=== PATIENT | male | born 1960 | race Caucasian/White ===

== ENCOUNTER → 2019-12-23 | Outpatient (CLI) | payer BC ==
[~2019-12-23] MED LIST: CEPHALEXIN500 M1 PO; FLEXERIL10 MG PO; LEVAQUIN 750MG750 M1 PO; LIPITOR 10MG10 MG PO; MOTRIN800 MG PO; PERCOCET 325 MG1 TA2 PO; PROVENTIL0.09 MG/A1 IH; SEPTRA DS 8001 TAB PO; ULTRAM 50MG TAB50 MG PO; VICODIN 5/5001 UDTAB PO; ZOCOR
== END ==
LOC: COL.RAD 08:41
DX: K76.0 Fatty (change of) liver, not elsewhere classified (principal); R16.0 Hepatomegaly, not elsewhere classified

== ENCOUNTER 2021-03-13 14:54 | Emergency (ER) | payer BC ==
[~2021-03-13] VITALS: Ht 167.6 cm; Wt 115.5 kg
[2021-03-13 16:24] VITALS: BP 147/80; PULSE 82; TEMP 98.3
== END 2021-03-13 18:00 | disposition left against medical advice (07) ==
LOC: COL.ER 14:54
DX: M54.9 Dorsalgia, unspecified (principal)

== ENCOUNTER → 2021-06-01 | Outpatient (CLI) | payer BC | LOC: COL.RAD 12:56 | DX: M47.817 Spondylosis without myelopathy or radiculopathy, lumbosacral region (principal); M51.27 Other intervertebral disc displacement, lumbosacral region; M48.07 Spinal stenosis, lumbosacral region; M51.26 Other intervertebral disc displacement, lumbar region; M47.815 Spondylosis without myelopathy or radiculopathy, thoracolumbar region; M51.36 Other intervertebral disc degeneration, lumbar region ==

== ENCOUNTER 2023-04-02 09:07 | Day surgery (SDC) | payer BC ==
[~2023-04-02] VITALS: Ht 167.6 cm; Wt 112.5 kg
[2023-04-02] VITALS (11 sets, daily range): BP systolic 106–134; BP diastolic 52–85; PULSE 58–70; TEMP 97.2–98.6
[2023-04-02] MEDS ORDERED: LIPITOR20 MG PO (09:53)
[2023-04-02] MEDS ORDERED: RT ADVAIR 528 DISKUS IH (09:54)
[2023-04-02] MEDS ORDERED: BYSTOLIC20 MG PO (09:55)
[2023-04-02] MEDS ORDERED: MAXZIDE-25MG TA1 TAB PO (09:55)
--- NOTE | 2023-04-02 10:39 | NUR ---
0928 Pt ambulatory to bay [facility] with limping gait, r/t pain w/ ambulation. Pt is breathing even and unlabored. Pt is alert and oriented, accompanied by his . Consents reviewed and signed by pt.IV established. LR infusing via dial a flow. Call light in reach. Warm blanket provided.
--- NOTE | 2023-04-02 17:46 | NUR ---
Patient resting in bed. Vitals stable. He has tolerated applesauce without nausea. Spinal/block still manages pain. Right knee dressing CDI. Hemovac to compression. Scds. Ivf. Will monitor
--- NOTE | 2023-04-02 18:44 | NUR ---
PT REPORTS BLOCK HAS WORN OFF, ASKING FOR PAIN MEDS. OXYCODONE 5MG PO GIVEN. DRSG TO RT KNEE D/I, HEMOVAC COMPRESSED. INT TO LT HAND. IS ALERT AND ORIENTED X4.
--- NOTE | 2023-04-02 22:10 | NUR ---
PT ASSISTED TO BATHROOM WITH 2 ASSIST/GAIT BELT/WALKER VOIDS AND BACK TO BED. TRANSFERS FAIR. REPORTS SIGNIFICANT PAIN TO RT KNEE, MORPHINE 2MG IVP GIVEN. ICE PACK REPLACED.
--- NOTE | 2023-04-02 22:39 | NUR ---
PT REPORTS MORPHINE HELPED EASE HIS RT KNEE PAIN. OXYCODONE 5MG GIVEN PO FOR 4/10 PAIN.
--- NOTE | 2023-04-02 23:41 | NUR ---
PT HAS LARGE AMOUNT OF EMESIS, STOMACH FEELS BETTER NOW. REPORTS PAIN 0/10 AT THIS TIME.
[2023-04-03] VITALS (8 sets, daily range): BP systolic 122–135; BP diastolic 74–83; PULSE 66–69; TEMP 97.6–98.3
--- NOTE | 2023-04-03 01:00 | NUR ---
PT ASKING FOR PAIN MEDS, DOESN'T WANT MORPHINE. NEXT PAIN MEDS AVAILABLE AT 0200, PT WANTS TO WAIT FOR ORAL MEDS.
--- NOTE | 2023-04-03 02:09 | NUR ---
Pt drowsing, medicated with Oxycodone 5mg po now for rt knee pain.
--- NOTE | 2023-04-03 02:49 | NUR ---
REPEATED OXYCODONE 5MG PO FOR RT KNEE PAIN. IV ANTIBIOTIC GIVEN.
--- NOTE | 2023-04-03 04:30 | NUR ---
PT UP TO VOID, AMBULATES IN HALLWAY TO ORTHO DESK AND BACK TO BED. DOES WELL. SCHEDULED ES TYLENOL GIVEN AND ICE PACK REPLACED TO RT KNEE.
--- NOTE | 2023-04-03 04:40 | NUR ---
EMPTIED 70CC FROM HEMOVAC AND PLACED BACK TO COMPRESSION.
[2023-04-03 07:12] LABS: HEMATOCRIT 39.8 % (42.0-52.0); HEMOGLOBIN 13.9 g/dl (13.5-18.0)
[2023-04-03 07:31] LABS: CALCIUM 8.6 mg/dL (8.4-10.2); CREATININE, serum 1.28 mg/dL (0.72-1.25); POTASSIUM 3.2 mmol/L (3.5-4.5)
--- NOTE | 2023-04-03 07:50 | NUR ---
pt a&ox3 resting in bed. vss. meds given and assessment complete. pt rates pain in right knee a /. dressing is cdi. hemovac in place w minimal bloody output. pt tolerated breakfast well, denies nausea. INT to left hand patent. teds and scds to ble. pt denies needs at this time. call light in reach.
--- NOTE | 2023-04-03 12:54 | NUR ---
LAKSHMI drain removed without difficulty
--- NOTE | 2023-04-03 13:25 | NUR ---
Head Loft Worker met with patient to discuss discharge planning. Patient lives in [place] with his , Anshu (ph#[phone]) who is at bedside. Patient sees Dr. Meade for primary care and obtains medications from [facility] with no difficulties. Patient has a walker to return home with. Patient is normally independent with ADLS and plans to return home at time of discharge. 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 Patient stated his is his DPOA-[facility], but that they forgot to bring a copy in. Discharge Plan: Home
--- NOTE | 2023-04-03 14:32 | NUR ---
D: Initial visit: Senior Human Resources Representative stopped by room on rounds. Pt was resting and content with by his side. A: Pt has no needs right now. P: Senior Human Resources Representative informed pt that if he needed anything to let his nurse know. Senior Human Resources Representative will follow up as needed.
[2023-04-03] MEDS ORDERED: ELIQUIS 2.5 PO (15:39)
[2023-04-03] MEDS ORDERED: CEPHALEXIN500 M1 PO (15:40)
[2023-04-03] MEDS ORDERED: ROXICODONE 55 MG/TAB PO (15:40)
[2023-04-03] MEDS ORDERED: ZOFRAN ODT4 MG PO (15:44)
--- NOTE | 2023-04-03 16:19 | NUR ---
INT discontinued. discharge instructions given to pt and , all questions answered. pt escorted to personal vehicle by wheelchair.
== END 2023-04-03 16:22 | disposition home or self-care (01) ==
LOC: SDCO 09:07 → SURG 15:46 → SDCO 04-03 16:22
PROVIDERS: Physician Assistant
DX: M13.861 Other specified arthritis, right knee (principal); I10 Essential (primary) hypertension; E78.5 Hyperlipidemia, unspecified; J45.909 Unspecified asthma, uncomplicated; Z79.899 Other long term (current) drug therapy; Z79.51 Long term (current) use of inhaled steroids
CPT/HCPCS: OP; A9284; C1713; C1776; J0665; J0690; J1885; J2250; J2270; J2405; J2704; J2795; J3010; J7120